=== PATIENT | female | born 1945 | race Hispanic/Latino ===

== ENCOUNTER 2017-12-15 12:01 | Emergency (ER) | payer OTHER, MEDICARE ==
[2017-12-15 12:49] LABS: BASOPHILS % (AUTO) 0.4 % (0.0-5.0); EOSINOPHILS % (AUTO) 0.8 % (0.0-8.0); LYMPHOCYTES % (AUTO) 32.6 % (21.0-51.0); MEAN CORPUSCULAR HEMOGLOBIN 31.6 pg (27.0-33.0); MEAN CORPUSCULAR HGB CONC 34.1 g/dL (32.0-36.0); MEAN CORPUSCULAR VOLUME 92.7 fL (79-99); MONOCYTES % (AUTO) 4.3 % (3.0-13.0); NEUTROPHILS % (AUTO) 61.9 % (40.0-77.0); PLATELET COUNT (AUTO) 198 K/uL (130-400); RED BLOOD CELL COUNT(AUTO) 4.21 MIL/uL (4.00-5.50); RED CELL DISTRIBUTION WIDTH 13.4 % (11.0-15.5); WHITE BLOOD COUNT (AUTO) 6.7 K/uL (4.8-10.8)
[2017-12-15 13:00] LABS: CREATININE 0.8 mg/dL (0.5-1.5); POTASSIUM 3.8 mmol/L (3.5-5.1)
[2017-12-15 13:07] LABS: ALBUMIN 3.4 g/dL (3.5-5.0); BILIRUBIN,TOTAL 0.4 mg/dL (0.2-1.0); TOTAL PROTEIN, SERUM 7.3 g/dL (6.0-8.3)
[2017-12-15] MEDS ORDERED: DiphenhydrAMINE HCL 50 MG/ML VIAL ONE (13:30)
[2017-12-15] MEDS ORDERED: METOCLOPRAMIDE 10 MG TABLET ONE (13:31)
[2017-12-15] MEDS ORDERED: SODIUM CHLORIDE 0.9% 1000ML 1,000 ML IV ONE (13:31)
== END 2017-12-15 15:21 | disposition home or self-care (01) ==
LOC: EDH 12:01
DX: G44.209 Tension-type headache, unspecified, not intractable (principal); E86.0 Dehydration; I10 Essential (primary) hypertension; E78.5 Hyperlipidemia, unspecified
CPT/HCPCS: 36415; 80053; 85025; 96361; 96374; 99285; J1200; J7030

== ENCOUNTER → 2021-05-12 | Outpatient (CLI) | payer OTHER, MEDICARE | END | disposition home or self-care (01) | LOC: RAH 16:51 | PROVIDERS: ATTEND Family Medicine | DX: Z12.31 Encounter for screening mammogram for malignant neoplasm of breast (principal) | CPT/HCPCS: 77067 ==

== ENCOUNTER → 2021-06-03 | Outpatient (CLI) | payer OTHER, MEDICARE | END | disposition home or self-care (01) | LOC: RAH 13:45 | PROVIDERS: ATTEND Family Medicine | DX: R92.2 Inconclusive mammogram (principal); N60.11 Diffuse cystic mastopathy of right breast | CPT/HCPCS: 76641 ==

== ENCOUNTER → 2022-07-06 | Outpatient (CLI) | payer OTHER, MEDICARE | END | disposition home or self-care (01) | LOC: RAH 07:28 | PROVIDERS: ATTEND Family Medicine | DX: R74.9 Abnormal serum enzyme level, unspecified (principal); Z90.49 Acquired absence of other specified parts of digestive tract | CPT/HCPCS: 76700 ==

== ENCOUNTER → 2022-08-17 | Outpatient (CLI) | payer OTHER, MEDICARE | END | disposition home or self-care (01) | LOC: RAH 13:44 | PROVIDERS: ATTEND Family Medicine | DX: R51.9 Headache, unspecified (principal); J32.0 Chronic maxillary sinusitis; J32.2 Chronic ethmoidal sinusitis; R26.89 Other abnormalities of gait and mobility | CPT/HCPCS: 70551 ==